=== PATIENT | male | born 2000 | race Caucasian/White ===

== ENCOUNTER 2018-03-14 03:58 | Emergency (ER) | payer SELFPAY ==
[~2018-03-14] VITALS: Ht 190.5 cm; Wt 111.1 kg
[2018-03-14 04:26] LABS: BASO % 1 % (0-3); EOS # 0.2 x10^3/uL (0.0-0.7); EOS % 3 % (0-3); HEMATOCRIT 41.8 % (39.0-53.0); LYMPH # 2.8 x10^3/uL (1.0-4.8); LYMPH % 37 % (24-48); MEAN CORPUSCULAR HEMOGLOBIN 33 pg (25-35); MEAN CORPUSCULAR HGB CONC 36 g/dL (31-37); MEAN CORPUSCULAR VOLUME 91 fL (79-100); MONO # 0.9 x10^3/uL (0.0-1.1); MONO % 11 % (0-9); NEUT # 3.7 x10^3uL (1.8-7.7); NEUT % 48 % (31-73); PLATELET COUNT 300 x10^3/uL (140-400); RED BLOOD COUNT 4.58 x10^6/uL (4.30-5.70); RED CELL DISTRIBUTION WIDTH 13.2 % (11.5-14.5); WHITE BLOOD COUNT 7.6 x10^3/uL (4.0-11.0)
[2018-03-14 04:35] LABS: CALCIUM 8.9 mg/dL (8.5-10.1); CREATININE 1.1 mg/dL (0.7-1.3); GFR 86.2; POTASSIUM 3.7 mmol/L (3.5-5.1)
[2018-03-14 04:41] LABS: ALBUMIN/GLOBULIN RATIO 1.2 (1.0-1.7); MAGNESIUM 2.3 mg/dL (1.8-2.4); TOTAL BILIRUBIN 0.5 mg/dL (0.2-1.0); TOTAL PROTEIN 7.4 g/dL (6.4-8.2)
--- NOTE | 2018-03-14 04:48 | RAD ---
AP chest x-ray HISTORY: Chest pain. FINDINGS: Heart size normal. Mediastinum is normal. No pneumothorax, pulmonary opacities or pleural effusions. Bones are unremarkable. IMPRESSION: No acute process. Electronically signed by: Varinder Baer MD (03/14/2018 4:45 AM) [facility]
--- NOTE | 2018-03-14 04:59 | PHYS DOC ---
Past Medical History Past Medical History: Anxiety Additional Past Medical Histor: cardiac cath with ablation Alcohol Use: None Drug Use: None Adult General Chief Complaint Chief Complaint: CHEST PAIN HPI HPI Patient is a 17 year old female presenting with chest pain. He's had chest pain on and off for 2 weeks he said he sometimes feels his throat tightening up he feels some shooting pains in both hands it comes and goes at its worse at night when he is working tonight he had a 30 minute episode that was pretty severe with all those symptoms plus shortness of breath so he came to the emergency room he does endorse a history of anxiety he also says he has had heart palpitations as well as. He did have an ablation at age 9 for what he tells me it was a heart rate of 275 Review of Systems Review of Systems Constitutional: Denies fever or chills [] GI: Denies abdominal pain, nausea, vomiting, bloody stools or diarrhea [] : Denies dysuria or hematuria [] Musculoskeletal: Denies back pain or joint pain [] Neurologic: Denies headache, focal weakness or sensory changes [] Endocrine: Denies polyuria or polydipsia [] All other systems were reviewed and found to be within normal limits, except as documented in this note. Allergies Allergies Allergies Coded Allergies Type Severity Reaction Last Updated Verified No Known Drug Allergies 03/14/18 No Physical Exam Physical Exam Constitutional: Well developed, well nourished, no acute distress, non-toxic appearance. [] HENT: Normocephalic, atraumatic, bilateral external ears normal, oropharynx moist, no oral exudates, nose normal. [] Eyes: PERRLA, EOMI, conjunctiva normal, no discharge. [] Neck: Normal range of motion, no tenderness, supple, no stridor. [] Cardiovascular:Heart rate regular rhythm, no murmur [] Lungs & Thorax: Bilateral breath sounds clear to auscultation [] Abdomen: Bowel sounds normal, soft, no tenderness, no masses, no pulsatile masses. [] Back: No tenderness, no CVA tenderness. [] Extremities: No tenderness, no cyanosis, no clubbing, ROM intact, no edema. [] Neurologic: Alert and oriented X 3, normal motor function, normal sensory function, no focal deficits noted. [] Psychologic: Affect normal, judgement normal, mood mild anxiety Current Patient Data Vital Signs Vital Signs Date Time Temp Pulse Resp B/P (MAP) Pulse Ox O2 Delivery O2 Flow Rate FiO2 03/14/18 04:08 98.5 103 16 128/75 (92) 99 Room Air 98.5 Lab Values Laboratory Tests Test 03/14/18 04:16 White Blood Count 7.6 x10^3/uL (4.0-11.0) Red Blood Count 4.58 x10^6/uL (4.30-5.70) Hemoglobin 15.0 g/dL (13.0-17.5) Hematocrit 41.8 % (39.0-53.0) Mean Corpuscular Volume 91 fL (79-100) Mean Corpuscular Hemoglobin 33 pg (25-35) Mean Corpuscular Hemoglobin Concent 36 g/dL (31-37) Red Cell Distribution Width 13.2 % (11.5-14.5) Platelet Count 300 x10^3/uL (140-400) Neutrophils (%) (Auto) 48 % (31-73) Lymphocytes (%) (Auto) 37 % (24-48) Monocytes (%) (Auto) 11 % (0-9) H Eosinophils (%) (Auto) 3 % (0-3) Basophils (%) (Auto) 1 % (0-3) Neutrophils # (Auto) 3.7 x10^3uL (1.8-7.7) Lymphocytes # (Auto) 2.8 x10^3/uL (1.0-4.8) Monocytes # (Auto) 0.9 x10^3/uL (0.0-1.1) Eosinophils # (Auto) 0.2 x10^3/uL (0.0-0.7) Basophils # (Auto) 0.0 x10^3/uL (0.0-0.2) Sodium Level 139 mmol/L (136-145) Potassium Level 3.7 mmol/L (3.5-5.1) Chloride Level 104 mmol/L (98-107) Carbon Dioxide Level 26 mmol/L (21-32) Anion Gap 9 (6-14) Blood Urea Nitrogen 9 mg/dL (8-26) Creatinine 1.1 mg/dL (0.7-1.3) Estimated GFR (Cockcroft-Gault) 86.2 BUN/Creatinine Ratio 8 (6-20) Glucose Level 91 mg/dL (70-99) Calcium Level 8.9 mg/dL (8.5-10.1) Magnesium Level 2.3 mg/dL (1.8-2.4) Total Bilirubin 0.5 mg/dL (0.2-1.0) Aspartate Amino Transferase (AST) 27 U/L (15-37) Alanine Aminotransferase (ALT) 39 U/L (16-63) Alkaline Phosphatase 135 U/L (46-116) H Troponin I Quantitative < 0.017 ng/mL (0.000-0.055) Total Protein 7.4 g/dL (6.4-8.2) Albumin 4.0 g/dL (3.4-5.0) Albumin/Globulin Ratio 1.2 (1.0-1.7) Laboratory Tests 03/14/18 04:16 Laboratory Tests 03/14/18 04:16 EKG EKG [] Interpretation Time: Normal sinus rhythm rate of 100 no ischemia no STEMI no delta wave seen the GA interval does not appear short Radiology/Procedures Radiology/Procedures [] Impressions: Ixray negative Course & Med Decision Making Course & Med Decision Making Pertinent Labs and Imaging studies reviewed. 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 Chest x-ray clear troponin negative EKG looks normal patient was reassured and discharged in stable condition Dragon Disclaimer Dragon Disclaimer This electronic medical record was generated, in whole or in part, using a voice recognition dictation system. Departure Departure Impression: Primary Impression: Chest pain Disposition: 01 HOME, SELF-CARE Condition: IMPROVED Patient Instructions: Chest Pain (Nonspecific), [id number] LISA ROBLEDO MD Mar 14, 2018 04:59
[2018-03-14 05:00] VITALS: BP 119/74
--- NOTE | 2018-03-14 07:56 | EKG ---
[facility] [address] [place] [address] Test Date: 2018-03-14 Test Time: 04:04:11 Pat Name: TRAE PORRAS Department: Room: Gender: Chief Minister: ER 19 : 2000 Requested By: LISA ROBLEDO Order Number: [id number] Reading MD: Jorge Sullivan MD Measurements Intervals [place] Rate: 100 P: 54 IN: 164 QRS: 46 QRSD: 94 T: 49 QT: 328 QTc: 426 Interpretive Statements SINUS RHYTHM Electronically Signed On 03-16-2018 12:08:03 CDT by Jorge Sullivan MD
== END 2018-03-14 05:13 | disposition home or self-care (01) ==
LOC: ER 03:58
DX: R07.89 Other chest pain (principal); R06.02 Shortness of breath; R00.2 Palpitations; F41.9 Anxiety disorder, unspecified; R07.0 Pain in throat
CPT/HCPCS: 36415; 71045; 80053; 83735; 84484; 85025; 93005; 99285-25